=== PATIENT | male | born 1930 | race Caucasian/White ===

== ENCOUNTER 2017-06-14 11:40 | Inpatient (IN) | payer MEDICARE ==
[~2017-06-14] VITALS: Ht 154.9 cm; Wt 71.0 kg
[2017-06-14] MEDS ORDERED: SODIUM CHLORIDE 0.9% 1000ML 1,000 ML IV STA (11:51)
[2017-06-14 13:10] LABS: BASOPHILS % 0.4 % (0.0-1.0); EOSINOPHILS # (AUTO) 0.1 (0.0-0.4); EOSINOPHILS % 1.3 % (0.0-6.0); HEMATOCRIT 41.8 % (38.2-49.6); HEMOGLOBIN 13.9 g/dL (14.0-18.0); LYMPHOCYTES # (AUTO) 1.2 (1.0-3.2); LYMPHOCYTES % 21.9 % (18.0-39.1); MEAN CORPUSCULAR HEMOGLOBIN 28.5 pg (28-32); MEAN CORPUSCULAR HGB CONC 33.3 g/dL (31-35); MEAN CORPUSCULAR VOLUME 85.8 fL (81-99); MONOCYTES # (AUTO) 0.8 (0.2-0.8); MONOCYTES % 15.4 % (4.4-11.3); NEUTROPHILS # (AUTO) 3.3 (2.1-6.9); NEUTROPHILS % 60.8 % (38.7-80.0); PLATELET COUNT 80 x10e3/uL (140-360); RED BLOOD COUNT 4.87 x10e6/uL (4.3-5.7); RED CELL DISTRIBUTION WIDTH 14.8 % (11.7-14.4)
[2017-06-14 13:22] LABS: INR 0.98; PROTHROMBIN TIME 13.5 seconds (11.9-14.5)
[2017-06-14 13:23] LABS: PARTIAL THROMBOPLASTIN TIME 30.5 seconds (23.8-35.5)
[2017-06-14 13:32] LABS: ALANINE AMINOTRANSFERASE 23 IU/L (0-55); ALBUMIN 3.4 g/dL (3.5-5.0); ALKALINE PHOSPHATASE 64 IU/L (40-150); BLOOD UREA NITROGEN 20 mg/dL (7-26); BUN/CREATININE RATIO 18 (6-25); CALCIUM 8.9 mg/dL (8.4-10.2); CARBON DIOXIDE 26 mmol/L (22-29); CHLORIDE 113 mmol/L (98-107); CREATINE KINASE 60 IU/L (30-200); CREATININE, SERUM 1.12 mg/dL (0.72-1.25); EST GLOMERULAR FILTRATION RATE > 60 ML/MIN (60-); GLUCOSE 125 mg/dL (74-118); POTASSIUM 4.6 mmol/L (3.5-5.1)
[2017-06-14 13:42] LABS: TROPONIN I 0.023 ng/mL (0-0.300)
[2017-06-14 15:23] LABS: ANION GAP 2.6 mmol/L (8-16); SODIUM 137 mmol/L (136-145)
[2017-06-14 15:27] LABS: BILIRUBIN,URINE NEGATIVE (NEGATIVE); CLARITY,URINE CLEAR (CLEAR); COLOR,URINE YELLOW (YELLOW); KETONES,URINE NEGATIVE (NEGATIVE); LEUKOCYTE ESTERASE ,URINE NEGATIVE (NEGATIVE); NITRITE,URINE NEGATIVE (NEGATIVE); PROTEIN,URINE DIPSTICK NEGATIVE (NEGATIVE); URINE UROBILINOGEN 0.2 mg/dL (0.2 - 1)
[2017-06-14] MEDS ORDERED: OSELTAMIVIR PHOSPHATE 75 MG CAP PO ONE (16:15)
[2017-06-14] MEDS ORDERED: FUROSEMIDE INJ 10 MG/ML 2 ML VIAL IV ONE (16:15)
[2017-06-14] MEDS ORDERED: DEXTROSE 50% SYRINGE 50 ML IV PRN (18:00)
[2017-06-14] MEDS ORDERED: AZITHROMYCIN 500MG/SOD CHL 0.9% 250ML BAG IV SCH (18:00)
--- NOTE | 2017-06-14 18:02 | Diagnostic Imaging Report ---
EXAM: XR CHEST 1 VIEW DATE: 06/14/2017 11:51 AM INDICATION: Cough COMPARISON: None FINDINGS: Lines and Tubes: Sternotomy wires. Heart and Mediastinum: Moderate cardiomegaly. Lungs and Pleura: Mild to moderate edema. Superimposed alveolar opacity lingula suspected. Radiopaque density overlies right midlung. Bones and Soft Tissues: No acute findings. IMPRESSION: 1. Volume overload. Superimposed lingular pneumonia possible. Follow-up recommended. Signed by: Dr. Dmitri Claros MD on 06/14/2017 5:59 PM
[2017-06-14] MEDS: INSULIN REGULAR, HUMAN 100 UNIT/1 ML 3ML VIAL SQ SCH (21:00)
[2017-06-14 21:15] VITALS: BP 184/89
[2017-06-14] MEDS: CEFTRIAXONE SOD 1 GM VIAL IV SCH (22:00)
[2017-06-14] MEDS: AZITHROMYCIN 500MG/NS 250 ML 250 ML IV SCH (23:00)
[2017-06-15] VITALS (7 sets, daily range): BP systolic 118–171; BP diastolic 55–72
[2017-06-15] MEDS ORDERED: SODIUM CHLORIDE 0.9% 250ML 250 ML ONE (00:28)
[2017-06-15] MEDS ORDERED: LISINOPRIL10 MG PO (05:02)
[2017-06-15] MEDS ORDERED: ASPIR-LOW81 MG (05:02)
[2017-06-15] MEDS ORDERED: NORVASC5 MG PO (05:02)
[2017-06-15] MEDS ORDERED: LIPITOR20 MG (05:11)
[2017-06-15] MEDS ORDERED: PRILOSEC10 M1 (05:11)
[2017-06-15] MEDS: INSULIN REGULAR, HUMAN 100 UNIT/1 ML 3ML VIAL SQ SCH ×4 (07:30→21:00)
[2017-06-15] MEDS ORDERED: ATORVASTATIN 20 MG TAB PO SCH (09:00)
[2017-06-15] MEDS: AMLODIPINE BESYLATE 5 MG TAB PO SCH (09:00)
[2017-06-15] MEDS: BENZONATATE 100 MG CAP PO SCH ×3 (09:00→22:47)
[2017-06-15] MEDS ORDERED: FUROSEMIDE 20 MG TAB PO ONE (09:00)
[2017-06-15] MEDS: LISINOPRIL 20 MG TAB PO SCH (09:00)
--- NOTE | 2017-06-15 09:39 | History and Physical ---
CHIEF COMPLAINT: Fatigue and weakness. HISTORY OF PRESENT ILLNESS: An 87-year-old man who has been fatigued and weak with difficulty ambulating and getting out of bed. Therefore, he was brought to the hospital by Dr. Allen, his son-in-law. The patient denies any chest pain. He denies any fever, chills, sweats. Here he is found to be positive for influenza A. He is admitted for further evaluation and management. PAST MEDICAL HISTORY/PAST SURGICAL HISTORY: Colon cancer, bladder cancer, malignant melanoma, coronary artery disease, status post coronary artery bypass graft, congestive heart failure, type unknown, diabetes mellitus type 2, dementia. ALLERGIES: Per electronic medical records. FAMILY HISTORY/SOCIAL HISTORY: The patient's son-in-law and daughter involved in his care. Denies any alcohol, illicits or cigarettes. MEDICATIONS: Per electronic medical records. REVIEW OF SYSTEMS: Denies any dizziness or chest pain. PHYSICAL EXAMINATION VITAL SIGNS: Reviewed. his T max is 99.4 GENERAL APPEARANCE: A tired-appearing man resting in the bed. HEENT: Anicteric. Pupils responsive to light. No oral lesions. CARDIOVASCULAR: Normal S1 and S2. A loud murmur is heard. LUNGS: Mildly coarse breath sounds. No wheezing. ABDOMEN: Soft and nontender. Nondistended. EXTREMITIES: There is no edema or calf tenderness. NEUROLOGIC: Alert and appropriate. Moving all extremities. SKIN: Dry. PSYCHIATRIC: Normal affect. LABS: Reviewed. MEDICATIONS: Reviewed. ASSESSMENT AND PLAN: An 87-year-old man. 1. Positive influenza A. Will continue with Tamiflu. 2. Lingula pneumonia. Will treat him with azithromycin and ceftriaxone. 3. Physical deconditioning. Will get physical therapy on board. 4. Hyperglycemia/diabetes mellitus. Restart home medications. Check hemoglobin A1c and lipid panel. 5. Elevated B-natriuretic peptide of 634/history of congestive heart failure. Will monitor for his status and control blood pressure. 6. Hypertension. Continue calcium channel liz and FRANTZ inhibitor. 7. Hyperlipidemia. Continue statin. 8. Prophylaxis: Use Lovenox and Pepcid. DISPOSITION: Consider diuresis. Continue antibiotics and Tamiflu. Job#: [id number]
[2017-06-15] MEDS: ASPIRIN 81 MG CHEW TAB PO SCH (10:10)
[2017-06-15] MEDS: FUROSEMIDE INJ 10 MG/ML 2 ML VIAL IV SCH ×2 (10:10→18:35)
[2017-06-15] MEDS: OSELTAMIVIR PHOSPHATE 75 MG CAP PO SCH ×2 (10:10→18:35)
[2017-06-15] MEDS ORDERED: FUROSEMIDE 20 MG TAB ONE (18:28)
[2017-06-15] MEDS ORDERED: CEFTRIAXONE SOD 1 GM VIAL ONE (18:29)
[2017-06-15] MEDS ORDERED: OSELTAMIVIR PHOSPHATE 75 MG CAP ONE (18:29)
[2017-06-15] MEDS ORDERED: FUROSEMIDE INJ 10 MG/ML 2 ML VIAL ONE (18:30)
[2017-06-15] MEDS: CEFTRIAXONE SOD 1 GM VIAL IV SCH (18:35)
[2017-06-15] MEDS ORDERED: AZITHROMYCIN 500MG/NS 250 ML 250 ML ONE (20:04)
[2017-06-15] MEDS: AZITHROMYCIN 500MG/NS 250 ML 250 ML IV SCH (20:17)
[2017-06-15] MEDS: IPRATROPIUM BROMIDE 0.02% 2.5 ML NEB NEB SCH (20:30)
[2017-06-15] MEDS: ALBUTEROL SULF 0.083% NEB SOLN 3 ML NEB NEB SCH ×2 (20:30→23:35)
[2017-06-15] MEDS ORDERED: ALBUTEROL SULF 0.083% NEB SOLN 3 ML NEB ONE (20:31)
[2017-06-15] MEDS ORDERED: IPRATROPIUM BROMIDE 0.02% 2.5 ML NEB ONE (20:32)
[2017-06-15] MEDS: ATORVASTATIN 20 MG TAB PO SCH (22:47)
[2017-06-16 00:20] VITALS: BP 107/50
[2017-06-16] MEDS: ALBUTEROL SULF 0.083% NEB SOLN 3 ML NEB NEB SCH ×6 (01:10→19:15)
[2017-06-16] MEDS: IPRATROPIUM BROMIDE 0.02% 2.5 ML NEB NEB SCH ×4 (03:45→19:15)
[2017-06-16 04:23] VITALS: BP 116/56
[2017-06-16] MEDS: INSULIN REGULAR, HUMAN 100 UNIT/1 ML 3ML VIAL SQ SCH ×4 (07:30→20:59)
[2017-06-16 07:44] VITALS: BP 130/59
[2017-06-16] MEDS: FUROSEMIDE INJ 10 MG/ML 2 ML VIAL IV SCH ×2 (09:57→17:45)
[2017-06-16] MEDS: OSELTAMIVIR PHOSPHATE 75 MG CAP PO SCH ×2 (09:57→17:45)
[2017-06-16] MEDS: AMLODIPINE BESYLATE 5 MG TAB PO SCH (09:57)
[2017-06-16] MEDS: ASPIRIN 81 MG CHEW TAB PO SCH (09:57)
[2017-06-16] MEDS: LISINOPRIL 20 MG TAB PO SCH (09:57)
[2017-06-16] MEDS: BENZONATATE 100 MG CAP PO SCH ×3 (09:57→20:58)
[2017-06-16 12:09] VITALS: BP 126/58
[2017-06-16 16:28] VITALS: BP 108/53
[2017-06-16] MEDS: CEFTRIAXONE SOD 1 GM VIAL IV SCH (18:13)
[2017-06-16 20:19] VITALS: BP 119/56
[2017-06-16] MEDS ORDERED: AZITHROMYCIN 500MG/NS 250 ML 250 ML IV SCH (20:45)
[2017-06-16] MEDS: ATORVASTATIN 20 MG TAB PO SCH (20:58)
[2017-06-17 00:27] VITALS: BP 105/52
--- NOTE | 2017-06-17 05:03 | Progress Note ---
DATE: June 16, 2017 TIME: 7:00 a.m. SUBJECTIVE: Overnight, feeing better. REVIEW OF SYSTEMS: Denies any dizziness or chest pain. PHYSICAL EXAMINATION VITAL SIGNS: Reviewed. GENERAL: A tired-appearing man resting in bed. HEENT: Anicteric. CARDIOVASCULAR: Normal S1/S2. Without murmurs. ABDOMEN: Soft, nontender, nondistended. EXTREMITIES: No edema or calf tenderness. NEUROLOGIC: Alert and appropriate. Moving all extremities. SKIN: Dry. PSYCHIATRIC: Normal affect. LABS: Reviewed. MEDICATIONS: Reviewed. ASSESSMENT AND PLAN: An 87-year-old man. 1. Positive influenza A. 2. Lingula pneumonia. 3. Physical deconditioning. 4. Diabetes mellitus. 5. Elevated brain natriuretic peptide/History of congestive heart failure. 6. Hypertension/hyperlipidemia. 7. Citrobacter urinary tract infection. PLAN 1. Continue Tamiflu. 2. Continue azithromycin and ceftriaxone. 3. Continue Lasix 20 IV b.i.d. 4. Continue physical therapy. 5. Patient has Citrobacter urinary tract infection. ceftriaxone. 6. Obtain labs in the morning. Job#: [id number] CQ
[2017-06-17 05:17] VITALS: BP 119/55
[2017-06-17 07:22] LABS: BASOPHILS % 0.3 % (0.0-1.0); EOSINOPHILS # (AUTO) 0.1 (0.0-0.4); EOSINOPHILS % 1.9 % (0.0-6.0); HEMATOCRIT 39.4 % (38.2-49.6); HEMOGLOBIN 13.3 g/dL (14.0-18.0); LYMPHOCYTES # (AUTO) 1.9 (1.0-3.2); LYMPHOCYTES % 31.4 % (18.0-39.1); MEAN CORPUSCULAR HEMOGLOBIN 28.5 pg (28-32); MEAN CORPUSCULAR HGB CONC 33.8 g/dL (31-35); MEAN CORPUSCULAR VOLUME 84.4 fL (81-99); MONOCYTES # (AUTO) 0.9 (0.2-0.8); MONOCYTES % 13.8 % (4.4-11.3); NEUTROPHILS # (AUTO) 3.2 (2.1-6.9); NEUTROPHILS % 52.4 % (38.7-80.0); PLATELET COUNT 85 x10e3/uL (140-360); RED BLOOD COUNT 4.67 x10e6/uL (4.3-5.7); RED CELL DISTRIBUTION WIDTH 14.5 % (11.7-14.4)
[2017-06-17] MEDS: INSULIN REGULAR, HUMAN 100 UNIT/1 ML 3ML VIAL SQ SCH ×3 (07:30→16:30)
[2017-06-17] MEDS: IPRATROPIUM BROMIDE 0.02% 2.5 ML NEB NEB SCH ×2 (07:45→12:45)
[2017-06-17] MEDS: ALBUTEROL SULF 0.083% NEB SOLN 3 ML NEB NEB SCH ×3 (07:45→15:30)
[2017-06-17 07:49] LABS: CALCIUM 8.8 mg/dL (8.4-10.2); CREATININE, SERUM 1.84 mg/dL (0.72-1.25)
[2017-06-17 07:56] VITALS: BP 138/58
[2017-06-17] MEDS: ASPIRIN 81 MG CHEW TAB PO SCH (09:47)
[2017-06-17] MEDS: AMLODIPINE BESYLATE 5 MG TAB PO SCH (09:47)
[2017-06-17] MEDS: BENZONATATE 100 MG CAP PO SCH ×2 (09:47→17:03)
[2017-06-17] MEDS: LISINOPRIL 20 MG TAB PO SCH (09:47)
[2017-06-17] MEDS: OSELTAMIVIR PHOSPHATE 75 MG CAP PO SCH ×2 (09:47→17:03)
[2017-06-17] MEDS: FUROSEMIDE INJ 10 MG/ML 2 ML VIAL IV SCH ×2 (09:47→17:03)
[2017-06-17 11:38] VITALS: BP 134/90
[2017-06-17] MEDS ORDERED: LEVAQUIN500 MG PO (16:29)
[2017-06-17] MEDS ORDERED: TAMIFLU75 MG PO (16:30)
[2017-06-17 16:31] VITALS: BP 120/60
--- NOTE | 2017-06-17 16:36 | Discharge Summary ---
FINAL DISCHARGE DIAGNOSIS: 1. Influenza A positive. 2. Community-acquired pneumonia. 3. Type-2 diabetes. 4. Urinary tract infection, Citrobacter. 5. Hypertension. 6. Chronic thrombocytopenia. CONSULTANTS: None. VITAL SIGNS: Temperature is 97.5, pulse 84, respiratory rate is 22, blood pressure was 134/90, pulse ox 97% on room air. LAB FINDINGS: Show white count 6.1, hemoglobin 13, hematocrit is 39, platelets of 85. Coagulation: PT 13.5, INR 0.98, PTT 30.5. Chemistry: Sodium 141, potassium is 4, chloride 102, bicarbonate 29, anion gap of 14, BUN is 36, his creatinine is 1.8. Glucose 152. Calcium 8.8. LFTs were normal. His troponin was negative. Albumin was 3.4. His urinalysis was negative. MICROBIOLOGY: Blood cultures negative. Urine culture positive for Citrobacter, sensitive to fluoroquinolones. IMAGING STUDIES: Chest x-ray: Volume overload, concern for underlying lingular pneumonia. HOSPITAL COURSE: This is an 87-year-old male who came in with complaints of generalized weakness and fatigue and came into the ER for further evaluation. Patient was found to have influenza A positive and underlying pneumonia. Patient was admitted, started on antibiotics and Tamiflu. His blood cultures were negative. Urine culture was consistent for Citrobacter and sensitive to fluoroquinolones. Patient improved throughout the hospital course, doing well with no other complaints. He will be discharged on Tamiflu for 3 more days, including Levaquin for 10 more days for UTI and pneumonia. On discharge, patient was doing well with no other complaints. Patient denies any other issues at this time. On the day of discharge, vital signs were stable. Labs were reviewed and stable. Patient seen and evaluated and examined thoroughly on the day of discharge with no other complaints. Patient verbalized understanding and agreed with the plan of care, to follow up accordingly as an outpatient with his primary care physician in 2 to 5 days. MEDICATIONS: See med reconciliation form, including Levaquin 500 mg 1 tab p.o. daily for 10 days, Tamiflu 75 mg p.o. b.i.d. for 3 days. CONDITION: Stable. DISPOSITION: To home. DIET: Heart healthy. FOLLOWUP: With your PCP in 2 to 5 days. In the event of any worsening symptoms, patient advised to come back to the ED for further evaluation. Discharge summary took greater than 35 minutes. ABBY VILLARREAL MD Job#: [id number] EV
[2017-06-17] MEDS: CEFTRIAXONE SOD 1 GM VIAL IV SCH (17:03)
== END 2017-06-17 17:33 | disposition home or self-care (01) | DRG 194 ==
LOC: ER 11:40 → ERHOLD 18:00 → MED/SURG3 20:10 → UNDODISOB 06-15 03:20 → MED/SURG3 06-15 03:30 → OBSVTOIN 06-16 06:26
PROVIDERS: ADMIT Internal Medicine; ATTEND Internal Medicine
DX: J18.9 Pneumonia, unspecified organism (principal); N39.0 Urinary tract infection, site not specified; E11.65 Type 2 diabetes mellitus with hyperglycemia; D69.6 Thrombocytopenia, unspecified; I11.0 Hypertensive heart disease with heart failure; I50.9 Heart failure, unspecified; F03.90 Unspecified dementia, unspecified severity, without behavioral disturbance, psychotic disturbance, mood disturbance, and anxiety; I10 Essential (primary) hypertension; J10.1 Influenza due to other identified influenza virus with other respiratory manifestations; B96.89 Other specified bacterial agents as the cause of diseases classified elsewhere; I25.10 Atherosclerotic heart disease of native coronary artery without angina pectoris; Z95.1 Presence of aortocoronary bypass graft; Z79.82 Long term (current) use of aspirin; Z85.51 Personal history of malignant neoplasm of bladder; Z85.038 Personal history of other malignant neoplasm of large intestine; Z85.820 Personal history of malignant melanoma of skin
CPT/HCPCS: 36415; 71010; 80048; 80053; 81001; 82550; 82553; 82948; 83880; 84484; 85025; 85610; 85730; 87040; 87086; 87186; 87400; 93005; 96367; 96372; 97139; 99284; G0378; J0456; J0696; J1940; J7030; J7050